=== PATIENT | male | born 1955 | race Caucasian/White ===

== ENCOUNTER → 2019-03-17 | Outpatient (CLI) | payer BC ==
--- NOTE | 2019-03-19 12:20 | SLEEPHOME ---
DATE OF STUDY: 03/17/2019 ORDERED BY: Dr. Farr Diagnostic home sleep testing was performed due to concern for obstructive sleep apnea syndrome. For testing, a nocturnal T3 respiratory monitoring device was used. Continuous record was made of pulse, oxygen saturation, airflow, chest and abdominal strain and body position. 10 hours 59 minutes of data were reviewed. There were 7 hours and 29 minutes marked as time in bed. During the interval marked time in bed, there were 418 respiratory events identified of 10 seconds in duration or greater for a respiratory event index of 55.7. The events were primarily obstructive. Baseline pulse rate was 96 beats per minute, pulse rate ranged 87-107 and baseline saturation was 98%. Saturations fell as low as 58%. Testing was performed in both the supine and nonsupine positions. IMPRESSION: Abnormal home sleep testing with repetitive respiratory events and oxygen desaturations to 52% with a respiratory event index of 55.7 is consistent with severe obstructive sleep apnea syndrome. RECOMMENDATION: The patient should be encouraged to undergo formal sleep evaluation and in-laboratory pressure titration at the earliest convenience.
== END ==
LOC: M SLEEP HO 10:27 → EDSEX 10:30
PROVIDERS: ATTEND Internal Medicine Pulmonary Disease
DX: G47.30 Sleep apnea, unspecified (principal)